=== PATIENT | male | born 1970 | race African-American/Black ===

== ENCOUNTER 2017-06-25 10:25 | Emergency (ER) | payer MEDICAID ==
[~2017-06-25] VITALS: Ht 182.9 cm; Wt 80.0 kg
[~2017-06-25 10:25] MED LIST: AMLO1CAP8 PO; LEVE500T53 PO; LORA1TAB PO; METO200T5 PO
[2017-06-25 10:28] VITALS: BP 126/86
[2017-06-25] MEDS ORDERED: CYCLOBENZAPRINE 10 MG TABLET PO PRN (11:00)
[2017-06-25] MEDS ORDERED: KETOROLAC 30 MG/1 ML IM ONE (11:00)
[2017-06-25] MEDS ORDERED: KETOROLAC 30 MG/1 ML ONE (11:05)
[2017-06-25] MEDS ORDERED: CYCLOBENZAPRINE 10 MG TABLET ONE (11:13)
== END 2017-06-25 11:45 | disposition home or self-care (01) ==
LOC: ED 11:39
DX: S39.012A Strain of muscle, fascia and tendon of lower back, initial encounter (principal); I10 Essential (primary) hypertension; X58.XXXA Exposure to other specified factors, initial encounter; Y93.89 Activity, other specified; Y92.89 Other specified places as the place of occurrence of the external cause; Y99.9 Unspecified external cause status
CPT/HCPCS: 96372; 99283; J1885

== ENCOUNTER 2017-11-12 14:31 | Emergency (ER) | payer MEDICAID ==
[~2017-11-12] VITALS: Ht 180.3 cm; Wt 69.0 kg
[~2017-11-12 14:31] MED LIST changes: +METO200T47 PO; -METO200T5 PO
[2017-11-12] MEDS ORDERED: SODIUM CHLORIDE 0.9% 1,000 ML IV ONE (15:16)
[2017-11-12] MEDS ORDERED: ONDANSETRON 2MG/ML, 2ML ONE (15:27)
[2017-11-12] MEDS ORDERED: LORazepam 2 MG/ML, 1ML ONE (15:27)
[2017-11-12] MEDS ORDERED: LORazepam 2 MG/ML, 1ML IVPush ONE (15:30)
[2017-11-12] MEDS ORDERED: ONDANSETRON 2MG/ML, 2ML IVPush ONE (15:30)
[2017-11-12] MEDS ORDERED: SODIUM CHLORIDE FLUSH 10ML SYR IVF ONE (15:30)
[2017-11-12] MEDS ORDERED: SODIUM CHLORIDE 0.9% 1,000ML IVBOLUS ONE (15:30)
[2017-11-12 15:43] LABS: MICROSCOPIC NOT IND
[2017-11-12 15:52] LABS: CULTURE INDICATED? NO
[2017-11-12 16:05] LABS: BASOPHILS # (AUTO) 0.05 x10^3/uL (0-0.1); BASOPHILS % (AUTO) 0 % (0-1); EOSINOPHILS # (AUTO) 0.17 x10^3/uL (0-0.4); EOSINOPHILS % (AUTO) 1 % (1-7); LYMPHOCYTES # (AUTO) 1.96 x10^3/uL (1-3.4); LYMPHOCYTES % (AUTO) 15 % (22-44); MD NO; MEAN CORPUSCULAR HEMOGLOBIN 30.1 pg (27.5-34.5); MEAN CORPUSCULAR HGB CONC 33.7 g/dL (33.2-36.2); MEAN CORPUSCULAR VOLUME 89.2 fL (81-97); MEAN PLATELET VOLUME 8.6 fL (7.4-10.4); MONOCYTES # (AUTO) 0.72 x10^3/uL (0.2-0.8); MONOCYTES % (AUTO) 6 % (2-9); NEUTROPHILS # (AUTO) 9.92 x10^3/uL (1.8-6.8); NEUTROPHILS % (AUTO) 77 % (42-75); PLATELET COUNT 159 x10^3/uL (130-400); RED BLOOD COUNT 5.15 x10^6/uL (4.38-5.82); RED CELL DISTRIBUTION WIDTH 13.1 % (9.4-14.8)
[2017-11-12 16:16] LABS: ALANINE AMINOTRANSFERASE 32 U/L (12-78); ALBUMIN 3.8 g/dL (3.4-5.0); ANION GAP 6 mmol/L (5-15); CALCIUM 8.6 mg/dL (8.5-10.1); CHLORIDE 107 mmol/L (98-107); CREATININE 1.13 mg/dL (0.7-1.3)
[2017-11-12 16:18] LABS: ALKALINE PHOSPHATASE 61 U/L (45-117); BILIRUBIN,TOTAL 0.5 mg/dL (0.2-1.0); TOTAL PROTEIN 6.8 g/dL (6.4-8.2)
[2017-11-12 17:33] VITALS: BP 128/81
== END 2017-11-12 17:40 | disposition home or self-care (01) ==
LOC: ED 16:22
DX: R56.9 Unspecified convulsions (principal); I10 Essential (primary) hypertension
CPT/HCPCS: 36415; 70450; 71045; 80053; 80177; 81003; 85025; 93005; 96361; 96374; 96375; 99285; J2060; J2405; J7030

== ENCOUNTER 2018-01-31 23:01 | Inpatient (IN) | payer MEDICAID ==
[~2018-01-31] VITALS: Ht 182.9 cm; Wt 65.5 kg
[2018-01-31] MEDS ORDERED: LEVO75TA5 PO (23:22)
[2018-01-31 23:39] LABS: MEAN CORPUSCULAR HEMOGLOBIN 30.6 pg (27.5-34.5); MEAN CORPUSCULAR HGB CONC 33.6 g/dL (33.2-36.2); MEAN CORPUSCULAR VOLUME 90.9 fL (81-97); MEAN PLATELET VOLUME 8.1 fL (7.4-10.4); PLATELET COUNT 248 x10^3/uL (130-400); RED BLOOD COUNT 5.02 x10^6/uL (4.38-5.82); RED CELL DISTRIBUTION WIDTH 13.2 % (9.4-14.8)
[2018-01-31 23:50] LABS: ALBUMIN 3.5 g/dL (3.4-5.0); ANION GAP 8 mmol/L (5-15); CALCIUM 8.6 mg/dL (8.5-10.1); CHLORIDE 109 mmol/L (98-107); CREATININE 1.12 mg/dL (0.7-1.3)
[2018-02-01 00:03] LABS: MD YES
[2018-02-01 00:05] LABS: EOS#(MANUAL) 0.18 x10^3/uL (0.0-0.4); EOS% (MANUAL) 2 % (1-7); LYMPH#(MANUAL) 4.01 x10^3/uL (1-3.4); LYMPHS% (MANUAL) 45 % (22-44); MONOS#(MANUAL) 0.36 x10^3/uL (0.3-2.7); MONOS% (MANUAL) 4 % (2-9); SEG#(MANUAL) 4.36 x10^3/uL (1.8-6.8); SEGS% (MANUAL) 49 % (42-75)
[2018-02-01 00:06] LABS: <PLATELET ESTIMATE> ADEQUATE; <RBC MORPHOLOGY> NORMAL; LARGE PLATELETS 1+
[2018-02-01] MEDS ORDERED: LEVETIRACETAM 1,000 MG in SODIUM CHLORIDE 0.9% 100 ML IV ONE (00:30)
[2018-02-01] MEDS ORDERED: ACETAMINOPHEN 325 MG TABLET PO PRN (01:30)
[2018-02-01] MEDS ORDERED: hydrALAzine 20 MG/ML, 1ML IVPush PRN (01:30)
[2018-02-01] MEDS ORDERED: LORazepam 2 MG/ML, 1ML IVPush PRN (01:30)
[2018-02-01] MEDS ORDERED: ONDANSETRON ODT 4 MG PO PRN (01:30)
[2018-02-01] MEDS ORDERED: LORazepam 2 MG/ML, 1ML IVPush ONE (02:30)
[2018-02-01 02:51] VITALS: BP 132/97
[2018-02-01] MEDS: LACTATED RINGERS 1,000 ML IV SCH ×2 (03:17→09:33)
[2018-02-01] MEDS ORDERED: LORA1TAB PO (05:27)
[2018-02-01] MEDS ORDERED: LEVOTHYROXINE 75 MCG TABLET PO SCH (06:00)
[2018-02-01] MEDS: NICOTINE 7 MG/24 HR PATCH.TD24 TD SCH (06:25)
[2018-02-01] MEDS: ENOXAPARIN 40 MG/0.4 ML SQ SCH (06:26)
[2018-02-01 07:46] VITALS: BP 122/81
[2018-02-01] MEDS: METOPROLOL SUCCINATE 100 MG TAB.ER.24H PO SCH (09:00)
[2018-02-01] MEDS: BENAZEPRIL 10 MG TABLET PO SCH (09:32)
[2018-02-01] MEDS: AMLODIPINE 5 MG TABLET PO SCH (09:32)
[2018-02-01 09:56] LABS: FREE T4 (FREE THYROXINE) 1.52 ng/dL (0.76-1.46); THYROID STIMULATING HORMONE 0.006 mIU/L (0.358-3.740)
[2018-02-01 11:19] LABS: BASOPHILS # (AUTO) 0.03 x10^3/uL (0-0.1); BASOPHILS % (AUTO) 0 % (0-1); EOSINOPHILS # (AUTO) 0.41 x10^3/uL (0-0.4); EOSINOPHILS % (AUTO) 5 % (1-7); LYMPHOCYTES # (AUTO) 2.54 x10^3/uL (1-3.4); LYMPHOCYTES % (AUTO) 29 % (22-44); MD NO; MEAN CORPUSCULAR HEMOGLOBIN 30.2 pg (27.5-34.5); MEAN CORPUSCULAR HGB CONC 33.4 g/dL (33.2-36.2); MEAN CORPUSCULAR VOLUME 90.4 fL (81-97); MEAN PLATELET VOLUME 8.6 fL (7.4-10.4); MONOCYTES # (AUTO) 0.46 x10^3/uL (0.2-0.8); MONOCYTES % (AUTO) 5 % (2-9); NEUTROPHILS # (AUTO) 5.25 x10^3/uL (1.8-6.8); NEUTROPHILS % (AUTO) 60 % (42-75); PLATELET COUNT 229 x10^3/uL (130-400); RED BLOOD COUNT 5.09 x10^6/uL (4.38-5.82); RED CELL DISTRIBUTION WIDTH 13.4 % (9.4-14.8)
[2018-02-01 11:27] LABS: ANION GAP 9 mmol/L (5-15); CALCIUM 8.3 mg/dL (8.5-10.1); CHLORIDE 110 mmol/L (98-107)
[2018-02-01 12:59] VITALS: BP 119/78
[2018-02-01] MEDS ORDERED: LEVETIRACETAM 1,000 MG in SODIUM CHLORIDE 0.9% 100 ML IV SCH (13:00)
[2018-02-01] MEDS ORDERED: DIVALPROEX 500 MG TABLET.DR PO SCH (13:00)
[2018-02-01 19:06] VITALS: BP 125/74
[2018-02-01] MEDS: DIVALPROEX 250 MG TAB.ER.24H PO SCH (21:00)
[2018-02-01] MEDS ORDERED: LORazepam 1MG TABLET PO PRN (21:30)
[2018-02-02 02:23] VITALS: BP 125/87
[2018-02-02] MEDS: NICOTINE 7 MG/24 HR PATCH.TD24 TD SCH (05:54)
[2018-02-02] MEDS ORDERED: LEVOTHYROXINE 50 MCG TABLET PO SCH (06:00)
[2018-02-02] MEDS: ENOXAPARIN 40 MG/0.4 ML SQ SCH (06:00)
[2018-02-02 08:00] VITALS: BP 130/92
[2018-02-02] MEDS: DIVALPROEX 250 MG TAB.ER.24H PO SCH (08:49)
[2018-02-02] MEDS: AMLODIPINE 5 MG TABLET PO SCH (08:49)
[2018-02-02] MEDS: BENAZEPRIL 10 MG TABLET PO SCH (08:49)
[2018-02-02] MEDS ORDERED: METOPROLOL SUCCINATE 100 MG TAB.ER.24H PO SCH (09:00)
[2018-02-02 14:45] VITALS: BP 149/97
[2018-02-02] MEDS ORDERED: LEVO50TA PO (16:09)
[2018-02-02] MEDS ORDERED: DIVA250T PO (16:09)
== END 2018-02-02 18:00 | disposition home or self-care (01) | DRG 101 ==
LOC: ED 23:59 → EDIP 02-01 00:43 → 4WST 02-01 02:35
PROVIDERS: ADMIT Hospitalist; ATTEND Hospitalist
DX: G40.901 Epilepsy, unspecified, not intractable, with status epilepticus (principal); E03.9 Hypothyroidism, unspecified; F10.10 Alcohol abuse, uncomplicated; F17.210 Nicotine dependence, cigarettes, uncomplicated; E05.90 Thyrotoxicosis, unspecified without thyrotoxic crisis or storm; F41.9 Anxiety disorder, unspecified; F43.21 Adjustment disorder with depressed mood; G47.9 Sleep disorder, unspecified; I10 Essential (primary) hypertension; Z83.3 Family history of diabetes mellitus; Z91.14 Patient's other noncompliance with medication regimen; Z88.8 Allergy status to other drugs, medicaments and biological substances; Z91.018 Allergy to other foods; Z91.010 Allergy to peanuts; Z71.6 Tobacco abuse counseling; Z79.899 Other long term (current) drug therapy
CPT/HCPCS: 36415; 70551; 80048; 80177; 82040; 83605; 84439; 84443; 84481; 85025; 93005; 95813; 96365; J1650; J1953; J7120

== ENCOUNTER 2018-03-04 06:27 | Emergency (ER) | payer MEDICAID ==
[~2018-03-04] VITALS: Ht 182.9 cm; Wt 62.9 kg
[~2018-03-04 06:27] MED LIST changes: +DIVA250T PO; +LEVO50TA PO; +LEVO75TA5 PO
[2018-03-04 06:30] VITALS: BP 122/88
== END 2018-03-04 07:40 | disposition home or self-care (01) ==
LOC: ED 07:38
DX: J00 Acute nasopharyngitis [common cold] (principal); I10 Essential (primary) hypertension; G40.909 Epilepsy, unspecified, not intractable, without status epilepticus; E05.90 Thyrotoxicosis, unspecified without thyrotoxic crisis or storm
CPT/HCPCS: 99281

== ENCOUNTER 2018-04-02 17:47 | Emergency (ER) | payer MEDICAID ==
[~2018-04-02] VITALS: Ht 182.9 cm; Wt 90.0 kg
[2018-04-02 18:35] LABS: ALBUMIN 3.2 g/dL (3.4-5.0); ANION GAP 7 mmol/L (5-15); CALCIUM 8.2 mg/dL (8.5-10.1); CHLORIDE 111 mmol/L (98-107)
[2018-04-02 18:39] LABS: BASOPHILS # (AUTO) 0.04 x10^3/uL (0-0.1); BASOPHILS % (AUTO) 1 % (0-1); EOSINOPHILS # (AUTO) 0.62 x10^3/uL (0-0.4); EOSINOPHILS % (AUTO) 9 % (1-7); LYMPHOCYTES # (AUTO) 2.38 x10^3/uL (1-3.4); LYMPHOCYTES % (AUTO) 33 % (22-44); MD NO; MEAN CORPUSCULAR HEMOGLOBIN 31.8 pg (27.5-34.5); MEAN CORPUSCULAR HGB CONC 34.2 g/dL (33.2-36.2); MEAN CORPUSCULAR VOLUME 92.9 fL (81-97); MEAN PLATELET VOLUME 9.2 fL (7.4-10.4); MONOCYTES # (AUTO) 0.56 x10^3/uL (0.2-0.8); MONOCYTES % (AUTO) 8 % (2-9); NEUTROPHILS # (AUTO) 3.66 x10^3/uL (1.8-6.8); NEUTROPHILS % (AUTO) 51 % (42-75); PLATELET COUNT 160 x10^3/uL (130-400); RED BLOOD COUNT 4.41 x10^6/uL (4.38-5.82)
[2018-04-02] MEDS ORDERED: DIVALPROEX 500 MG TAB.ER.24H PO ONE (19:30)
[2018-04-02 19:36] VITALS: BP 125/84
== END 2018-04-02 19:40 | disposition home or self-care (01) ==
LOC: ED 18:48
DX: G40.311 Generalized idiopathic epilepsy and epileptic syndromes, intractable, with status epilepticus (principal); I10 Essential (primary) hypertension; E03.9 Hypothyroidism, unspecified
CPT/HCPCS: 36415; 80048; 80185; 82040; 85025; 99284

== ENCOUNTER 2018-08-11 07:47 | Emergency (ER) | payer MEDICAID ==
[~2018-08-11] VITALS: Ht 182.9 cm; Wt 63.3 kg
[2018-08-11 07:53] VITALS: BP 127/81
[2018-08-11] MEDS ORDERED: KETOROLAC 30 MG/1 ML ONE (08:27)
[2018-08-11] MEDS ORDERED: KETOROLAC 30 MG/1 ML IM ONE (08:30)
== END 2018-08-11 09:13 | disposition home or self-care (01) ==
LOC: ED 09:07
DX: S40.011A Contusion of right shoulder, initial encounter (principal); I10 Essential (primary) hypertension; E03.9 Hypothyroidism, unspecified; G40.909 Epilepsy, unspecified, not intractable, without status epilepticus; X50.1XXA Overexertion from prolonged static or awkward postures, initial encounter; Y93.89 Activity, other specified; Y92.009 Unspecified place in unspecified non-institutional (private) residence as the place of occurrence of the external cause; Y99.8 Other external cause status
CPT/HCPCS: 73030; 96372; 99283; J1885

== ENCOUNTER 2019-03-03 12:12 | Emergency (ER) | payer MEDICAID ==
[~2019-03-03] VITALS: Ht 182.9 cm; Wt 65.0 kg
[2019-03-03 12:16] VITALS: BP 123/85
[2019-03-03] MEDS ORDERED: OXYcodone/APAP 5/325MG TABLET PO ONE (12:30)
--- NOTE | 2019-03-03 13:51 | NUR ---
Knee immobilizer applied & crutches provided per cane loader
--- NOTE | 2019-03-03 14:00 | NUR ---
PT AMBULATORY TO COUNT INCLUDES THE [facility], USING CRUTCHES. KNEE IMMOBILIZER ON.
== END 2019-03-03 14:13 | disposition home or self-care (01) ==
LOC: ED 13:13
DX: S83.512A Sprain of anterior cruciate ligament of left knee, initial encounter (principal); S83.522A Sprain of posterior cruciate ligament of left knee, initial encounter; M25.462 Effusion, left knee; I10 Essential (primary) hypertension; G40.909 Epilepsy, unspecified, not intractable, without status epilepticus; X50.1XXA Overexertion from prolonged static or awkward postures, initial encounter; Y92.009 Unspecified place in unspecified non-institutional (private) residence as the place of occurrence of the external cause; Y99.8 Other external cause status; Y93.89 Activity, other specified
CPT/HCPCS: 29505; 99283

== ENCOUNTER 2019-11-14 08:22 | Emergency (ER) | payer MEDICAID ==
[~2019-11-14] VITALS: Ht 182.9 cm; Wt 71.6 kg
[~2019-11-14 08:22] MED LIST changes: -AMLO1CAP8 PO; +AMLO1CAP9 PO
[2019-11-14 08:26] VITALS: BP 127/84
--- NOTE | 2019-11-14 08:57 | NUR ---
PT PRESENTS TO ED WITH C/O SORE THROAT, WORSE WITH SWALLOW, COUGH AND BODY ACHES ONSET TODAY. PT DENIES RECENT TRAVEL, SICK CONTACTS OR CONTACT WITH THOSE WHO HAVE RECENTLY TRA[place] OUT [place]. PT PLACED IN MASK IN TRIAGE. PT A&O, RESPS EVEN AND UNLABORED, NADN. S/O WITH PT. PT PLACED IN GOWN AND GIVEN WARM BLANKET. AWAITING PROVIDER ASSESSMENT AND ORDERS.
[2019-11-14] MEDS ORDERED: DEXAMETHASONE 4 MG/ML, 1ML IM ONE (09:30)
[2019-11-14] MEDS ORDERED: DEXAMETHASONE 4 MG/ML, 1ML ONE (09:33)
--- NOTE | 2019-11-14 09:57 | NUR ---
PT TOLERATED DECADRON ADMIN WELL. PT GIVEN WATER, TOLERATING PO'S WITH NO S/SX ASPIRATION. PT GIVEN DC INST AND SCRIPT, EDUCATED REGARDING RX FOR MAGIC MOUTHWASH AND AMOX. PT A&O, RESPS EVEN AND UNLABORED, AMB TO DC DESK WITH STEADY GAIT ACCOMPANIED BY S/O.
== END 2019-11-14 09:58 | disposition home or self-care (01) ==
LOC: ED 09:52
DX: J02.0 Streptococcal pharyngitis (principal); I10 Essential (primary) hypertension
CPT/HCPCS: 96372; 99283; J1100

== ENCOUNTER 2020-01-04 09:03 | Emergency (ER) | payer MEDICAID ==
[~2020-01-04] VITALS: Ht 182.9 cm; Wt 70.5 kg
[2020-01-04 09:06] VITALS: BP 138/98
== END 2020-01-04 10:52 | disposition home or self-care (01) ==
LOC: ED 09:14
DX: S76.212A Strain of adductor muscle, fascia and tendon of left thigh, initial encounter (principal); I10 Essential (primary) hypertension; X58.XXXA Exposure to other specified factors, initial encounter; Y93.89 Activity, other specified; Y92.009 Unspecified place in unspecified non-institutional (private) residence as the place of occurrence of the external cause; Y99.8 Other external cause status
CPT/HCPCS: 72190; 99283

== ENCOUNTER 2020-10-14 09:16 | Emergency (ER) | payer MEDICAID ==
[~2020-10-14] VITALS: Ht 185.4 cm; Wt 68.6 kg
[2020-10-14] MEDS ORDERED: KETOROLAC 30 MG/1 ML IM ONE (10:00)
--- NOTE | 2020-10-14 10:04 | NUR ---
PT BIB EMS FOR FAILURE TO CARE FORSELF. PT IN RECLINER FOR 4 DAYS AND HAS NOT MOVED DRINK ALCHOLOL, SOILING SELF. PT MALODOROUS. PT BILAT LEGS 3+ EDEMA. HX OF CHF. PT NONCOMPLIANT WITH MEDS. DENIES CP OR RESP DISTRESS. ON TILE MECHANIC HELPER. EKG COMPLETE
--- NOTE | 2020-10-14 10:04 | NUR ---
Note marjorieone in EDM - 10/14/20 at 1007 by MARIEL PT BIB EMS FOR FAILURE TO CARE FORSELF. PT IN RECLINER FOR 4 DAYS AND HAS NOT MOVED DRINK ALCHOLOL, SOILING SELF. PT MALODOROUS. PT BILAT LEGS 3+ EDEMA. HX OF CHF. PT NONCOMPLIANT WITH MEDS. DENIES CP OR RESP DISTRESS. ON SWIMMING POOL SERVICEPERSON. EKG COMPLETE
[2020-10-14] MEDS ORDERED: KETOROLAC 30 MG/1 ML ONE (10:10)
--- NOTE | 2020-10-14 12:00 | NUR ---
pt given crutches and knee brace
--- NOTE | 2020-10-14 12:04 | NUR ---
Patient/Caregiver given discharge instructions and they have confirmed that they understand the instructions. Patient ambulatory with steady gait.
[2020-10-14 12:05] VITALS: BP 120/82
== END 2020-10-14 12:07 | disposition home or self-care (01) ==
LOC: ED 10:15
DX: M25.562 Pain in left knee (principal); I10 Essential (primary) hypertension; G40.909 Epilepsy, unspecified, not intractable, without status epilepticus; F17.210 Nicotine dependence, cigarettes, uncomplicated
CPT/HCPCS: 29505; 73564; 96372; 99283; J1885

== ENCOUNTER 2021-06-01 00:20 | Emergency (ER) | payer MEDICAID ==
[~2021-06-01] VITALS: Ht 185.4 cm; Wt 69.3 kg
[2021-06-01 00:26] VITALS: BP 143/94
[2021-06-01 00:57] LABS: BASOPHILS % (AUTO) 0 % (0-1); EOSINOPHILS % (AUTO) 9 % (1-7); LYMPHOCYTES % (AUTO) 30 % (22-44); MEAN CORPUSCULAR HEMOGLOBIN 33.1 pg (27.5-34.5); MEAN CORPUSCULAR HGB CONC 34.4 g/dL (33.2-36.2); MEAN PLATELET VOLUME 7.6 fL (7.4-10.4); MONOCYTES % (AUTO) 6 % (2-9); NEUTROPHILS % (AUTO) 55 % (42-75); PLATELET COUNT 235 x10^3/uL (130-400); RED BLOOD COUNT 4.66 x10^6/uL (4.38-5.82); RED CELL DISTRIBUTION WIDTH 14.3 % (9.4-14.8)
[2021-06-01 01:11] LABS: ALANINE AMINOTRANSFERASE 32 U/L (12-78); ANION GAP 2 mmol/L (5-15); CALCIUM 8.9 mg/dL (8.5-10.1); CHLORIDE 106 mmol/L (98-107)
[2021-06-01 01:16] LABS: ALKALINE PHOSPHATASE 44 U/L (45-117); BILIRUBIN,TOTAL 0.6 mg/dL (0.2-1.0); CREATININE 1.33 mg/dL (0.7-1.3); TROPONIN I < 0.015 ng/mL (0.000-0.045)
[2021-06-01] MEDS ORDERED: ALBUTEROL/IPRATROPIUM 2.5MG/0.5MG, 3 ML NPPB ONE (03:00)
[2021-06-01] MEDS ORDERED: ALBUTEROL/IPRATROPIUM 2.5MG/0.5MG, 3 ML ONE (03:02)
--- NOTE | 2021-06-01 04:11 | NUR ---
Patient/Caregiver given discharge instructions and they have confirmed that they understand the instructions. Patient ambulatory with steady gait. NAD, all questions answered appropriately, denies additional needs at this time. No personal belongings left in room after discharge.
== END 2021-06-01 04:14 | disposition home or self-care (01) ==
LOC: ED 01:30
DX: J20.9 Acute bronchitis, unspecified (principal); B34.9 Viral infection, unspecified; J06.9 Acute upper respiratory infection, unspecified; Z20.822 Contact with and (suspected) exposure to COVID-19; R07.89 Other chest pain; I10 Essential (primary) hypertension; E05.90 Thyrotoxicosis, unspecified without thyrotoxic crisis or storm; G40.909 Epilepsy, unspecified, not intractable, without status epilepticus; F17.200 Nicotine dependence, unspecified, uncomplicated
CPT/HCPCS: 71045; 80053; 84484; 85025; 93005; 94640; 99285; J7512; U0003; U0005